=== PATIENT | male | born 1990 | race Two or more races ===

== ENCOUNTER 2017-04-15 13:45 | Emergency (ER) | payer OTHER ==
[~2017-04-15] VITALS: Ht 182.9 cm; Wt 106.1 kg
[~2017-04-15 13:45] MED LIST: FLEXERIL5 MG PO; KAOPECTATE 88 M88 M1 PO; KEFLEX500 MG PO; NAPROSYN500 MG PO; NOHOMEMEDS; PERCOCET 5/31 TABLET PO; ULTRAM50 MG PO
[2017-04-15 15:49] VITALS: BP 128/75
== END 2017-04-15 15:50 | disposition home or self-care (01) ==
LOC: EME 13:45
DX: F33.1 Major depressive disorder, recurrent, moderate (principal); S50.812A Abrasion of left forearm, initial encounter; X78.9XXA Intentional self-harm by unspecified sharp object, initial encounter; F60.2 Antisocial personality disorder; F12.90 Cannabis use, unspecified, uncomplicated; F17.210 Nicotine dependence, cigarettes, uncomplicated
CPT/HCPCS: 90837; 99281; 99284